=== PATIENT | female | born 1955 | race Caucasian/White ===

== ENCOUNTER 2018-07-24 16:32 | Emergency (ER) | payer MEDICAID ==
[~2018-07-24] VITALS: Ht 152.4 cm; Wt 59.5 kg
[2018-07-24 16:40] VITALS: BP 152/95
[2018-07-24] MEDS ORDERED: HYDROcodone/APAP 10/325 MG TABLET ONE (17:15)
[2018-07-24] MEDS ORDERED: HYDROcodone/APAP 10/325 MG TABLET PO ONE (17:30)
== END 2018-07-24 17:23 | disposition home or self-care (01) ==
LOC: ED 17:14
DX: G89.29 Other chronic pain (principal); M54.5 Low back pain; G89.4 Chronic pain syndrome
CPT/HCPCS: 99282